=== PATIENT | female | born 1995 | race American Indian/Alaskan Native ===

== ENCOUNTER 2020-07-13 20:46 | Emergency (ER) | payer BC ==
[2020-07-14] MEDS ORDERED: LIDOCAINE (1%) 10 MG/1 ML VIAL 20 ML MDV INFILTRATI ONE (01:07)
[2020-07-14] MEDS ORDERED: IBUPROFEN 600 MG TAB PO ONE (01:07)
--- NOTE | 2020-07-14 01:17 | XRay Report ---
EXAMINATION: Right hand radiograph, 3 views, 07/14/2020 CLINICAL INFORMATION: Right hand pain COMPARISON: None. FINDINGS: There is no evidence of acute bony fracture or significant soft tissue swelling. No signifi cant bony degenerative changes are noted. Signer Name: Fabi Carrasquillo MD Signed: 07/14/2020 1:12 AM Workstation Name: [id number]
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
[2020-07-14 06:28] VITALS: BP 116/78
== END 2020-07-14 05:15 | disposition home or self-care (01) ==
LOC: ED 20:46
DX: S01.81XA Laceration without foreign body of other part of head, initial encounter (principal); S60.221A Contusion of right hand, initial encounter; Z79.1 Long term (current) use of non-steroidal anti-inflammatories (NSAID); Z79.899 Other long term (current) drug therapy; W22.8XXA Striking against or struck by other objects, initial encounter; Y93.89 Activity, other specified; Y92.89 Other specified places as the place of occurrence of the external cause; Y99.0 Civilian activity done for income or pay
CPT/HCPCS: 70486

== ENCOUNTER 2020-07-22 08:13 | Emergency (ER) | payer BC ==
[2020-07-22 09:17] VITALS: BP 104/67
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
== END 2020-07-22 11:16 | disposition home or self-care (01) ==
LOC: ED 08:13
DX: S01.81XD Laceration without foreign body of other part of head, subsequent encounter (principal); X58.XXXD Exposure to other specified factors, subsequent encounter
CPT/HCPCS: 99282